=== PATIENT | female | born 1955 | race Caucasian/White ===

== ENCOUNTER → 2018-01-10 13:02 | Outpatient (CLI) | payer MEDICARE, SELFPAY ==
--- NOTE | 2018-01-10 13:08 | RAD_ITS ---
STUDY: X-RAY - THORACIC SPINE REASON FOR EXAM: Female, 62 years old. Neck pain. TECHNIQUE: 2 view(s) of the thoracic spine were obtained. COMPARISON: None. FINDINGS: There is mild generalized osteopenia. Normal kyphosis of the thoracic spine. There is no substantial scoliosis. Normal thoracic vertebrae and endplates. There is multilevel mild intervertebral disc space narrowing with small osteophytes. The soft tissue structures are unremarkable. RAD/Thoracic Spine 3 Views IMPRESSION: Osteopenia with generalized mild thoracic spondylosis. Electronically Signed: Bill Hamilton MD at 18:48 EST , Service support ,
== END ==
PROVIDERS: Family Provider Internal Medicine; PCP Internal Medicine; Visit Provider Anesthesiology Pain Medicine
DX: M54.6 Pain in thoracic spine (principal)
CPT/HCPCS: 72072

== ENCOUNTER → 2019-04-26 | Outpatient (CLI) | payer MEDICARE, SELFPAY ==
--- NOTE | 2019-04-26 14:24 | RAD_ITS ---
STUDY: X-RAY - LEFT ANKLE REASON FOR EXAM: Female, 64 years old. Pain TECHNIQUE: 3 view(s) of the ankle. COMPARISON: None. FINDINGS: Normal visualized distal tibia and fibula. Normal medial and lateral malleoli. Normal tibiotalar articulation and ankle mortise. There is a plantar spur. There is degenerative change in the tarsal joints. The visualized subtalar, talonavicular, calcaneocuboid and tarsal articulations are normal. The soft tissue structures are unremarkable. RAD/Ankle min 3 Views IMPRESSION: Plantar spur. No visualized fracture. Electronically Signed: Nati Cleary MD at 13:56 EDT Tel , Service support ,
== END | disposition home or self-care (01) ==
PROVIDERS: Family Provider Internal Medicine; PCP Internal Medicine; Referring Provider Nurse Practitioner; Visit Provider Nurse Practitioner
DX: M25.572 Pain in left ankle and joints of left foot (principal)
CPT/HCPCS: 73610

== ENCOUNTER → 2019-08-26 | Outpatient (CLI) | payer MEDICARE, SELFPAY ==
--- NOTE | 2019-08-26 13:51 | RAD_ITS ---
STUDY: X-RAY - LEFT KNEE REASON FOR EXAM: Female, 64 years old. Left-sided knee pain. TECHNIQUE: 4 view(s) of the knee. COMPARISON: Radiographs of the left knee dated June 22, 2016. FINDINGS: There is an osteophyte arising from the medial tibial plateau. There is elongation of the tibial spines consistent with enthesopathy. There is an osteophyte arising from lateral femoral condyle. The proximal tibia and fibula are osteopenic. Normal proximal tibiofibular articulation. There is no demonstrated fracture. There is severe degenerative arthrosis of the medial femorotibial compartment with severe joint space narrowing. There is moderate degenerative arthrosis of the lateral femorotibial compartment with moderate joint space narrowing. There is moderate degenerative arthrosis of the patellofemoral articulation. There is a soft tissue prominence in the suprapatellar region suggesting a small volume joint effusion. The soft tissue structures are unremarkable. RAD/Knee 4 or More Views IMPRESSION: Moderate to severe degenerative arthropathy of the knee, as described. Electronically Signed: Leidy Garcia MD at 9:07 EDT , Service support ,
== END | disposition home or self-care (01) ==
LOC: RAD.FUTURE 13:50
PROVIDERS: Family Provider Internal Medicine; PCP Internal Medicine; Referring Provider Internal Medicine; Visit Provider Internal Medicine
DX: M25.562 Pain in left knee (principal); G89.29 Other chronic pain
CPT/HCPCS: 73564

== ENCOUNTER → 2021-02-26 14:10 | Outpatient (CLI) | payer MEDICARE, SELFPAY ==
--- NOTE | 2021-02-26 14:13 | RAD_ITS ---
We are attempting to reach an attending provider to discuss findings. An addendum with communication details will be sent when the communication is complete. INDICATION: PAIN EXAMINATION/TECHNIQUE: X-RAY - RIGHT XR Knee Complete 4 Views or More COMPARISON: 08/19/2016. FINDINGS: Total knee arthroplasty with posterior dislocation of the femoral component. Soft tissue swelling of the knee. No definite fracture. RAD/Knee 4 or More Views IMPRESSION: Total knee arthroplasty with posterior dislocation of the femoral component. Electronically Signed: Maurizio Smith MD at 19:21 EDT Tel , Service support ,
--- NOTE | 2021-02-26 14:13 | RAD_ITS ---
STUDY: X-RAY - LEFT KNEE REASON FOR EXAM: Female, 66 years old. PAIN, stiffness TECHNIQUE: 4 view(s) of the knee. COMPARISON: None. FINDINGS: Normal visualized distal femur. Normal visualized proximal tibia and fibula. Normal proximal tibiofibular articulation. There is severe degenerative arthrosis of the medial femorotibial compartment with severe joint space narrowing. Normal lateral femorotibial compartment. There is moderate degenerative arthrosis of the patellofemoral articulation. The soft tissue structures are unremarkable. RAD/Knee 4 or More Views IMPRESSION: Severe medial compartment arthrosis with degenerative spurs Moderate posterior patellar joint arthrosis with patellar spurs No demonstrated fracture Electronically Signed: Huseyin Harris MD at 15:47 EDT , Service support ,
== END ==
PROVIDERS: PCP Internal Medicine; Referring Provider Internal Medicine; Visit Provider Internal Medicine
DX: M25.561 Pain in right knee (principal); M25.562 Pain in left knee
CPT/HCPCS: 73564

== ENCOUNTER → 2021-04-07 13:47 | Outpatient (CLI) | payer MEDICARE, SELFPAY ==
--- NOTE | 2021-04-07 13:54 | ECHOCS_ITS ---
Reason For Study: Dysphagia Procedure This was a 2D Doppler, Color Flow transthoracic echocardiogram. The study was technically difficult. Contrast injection was performed. Exam performed in department. Left Ventricle Normal LV size. Left ventricular systolic function is normal. The estimated ejection fraction is 65 %. No evidence for diastolic dysfunction. No regional wall motion abnormalities noted. Right Ventricle Normal RV size. Normal systolic function. Atria Normal left atrium. Normal right atrium. No doppler evidence for ASD. Mitral Valve There is no mitral annular calcification. Normal mitral valve. Trivial mitral valve insufficiency. Tricuspid Valve Normal tricuspid valve. Trivial tricuspid valve insufficiency. Right ventricular systolic pressure estimated to be 24 mmHg. Aortic Valve Trisinus/trileaflet aortic valve. Normal aortic valve. Pulmonic Valve The pulmonic valve is not well visualized. Trivial pulmonic valve insufficiency. Great Vessels Normal sized aortic root. Pericardium/Pleural No pericardial effusion. Medication 22 gauge I.V. with prn adaptor inserted into right arm. Diluted definity 3ml given slow IV push to enhance endocardial definition. MMode/2D Measurements & Calculations LVIDd: 4.0 cm IVSd: 1.2 cm Ao root diam: 3.1 cm LVIDs: 2.7 cm LVPWd: 1.0 cm LA dimension: 3.5 cm FS: 32.4 % LAV(MOD-bp): 62.4 ml LA A4 area: 19.6 cm2 RA A4 area: 17.3 cm2 LAV(MOD-bp) Indexed: 29.8 ml/m2 LAV(MOD-sp2): 58.1 ml LAV(MOD-sp4): 60.6 ml Time Measurements MV dec time: 0.26 sec Doppler Measurements & Calculations MV E max matias: 77.8 cm/sec Lat Peak E' Matias: 6.9 cm/sec Med Peak E' Matias: 8.3 cm/sec MV A max matias: 96.4 cm/sec E/E' lat: 11.3 E/E' med: 9.3 MV E/A: 0.81 MV V2 max: 112.5 cm/sec MV P1/2t max matias: 92.9 cm/sec Ao V2 max: 143.1 cm/sec MV max P.1 mmHg MV P1/2t: 80.6 msec Ao max P.2 mmHg MV V2 mean: 68.0 cm/sec MV dec slope: 337.3 cm/sec2 MV mean P.2 mmHg MV V2 VTI: 20.9 cm MVA(P1/2t): 2.7 cm2 LV V1 max: 107.6 cm/sec PA V2 max: 113.6 cm/sec TR max matias: 227.4 cm/sec LV V1 max P.6 mmHg TR max P.7 mmHg ECHO/Echo Complete W/ Contrast Interpretation Summary The study was technically difficult. Contrast injection was performed. Left ventricular systolic function is normal. The estimated ejection fraction is 65 %. Trivial mitral valve insufficiency. Trivial tricuspid valve insufficiency. Trivial pulmonic valve insufficiency. Right ventricular systolic pressure estimated to be 24 mmHg. No evidence for diastolic dysfunction. Ordering Physician: Gertrude Ham Referring Physician: Gertrude Ham Performed By: Tomasz Contreras RCS
== END ==
PROVIDERS: PCP Internal Medicine; Referring Provider Internal Medicine; Visit Provider Internal Medicine
DX: R06.02 Shortness of breath (principal); R06.01 Orthopnea
CPT/HCPCS: 93306; Q9957; A4216; C8929

== ENCOUNTER → 2021-06-16 10:37 | Outpatient (CLI) | payer MEDICARE, SELFPAY ==
--- NOTE | 2021-06-16 10:40 | BI_ITS ---
MAMMOGRAPHY - BILATERAL SCREENING REASON FOR EXAM: Female, 66 years old. Routine annual screening examination. PERTINENT HISTORY: Non-contributory. Remote left stereotactic breast biopsy. TECHNIQUE: Digital bilateral breast jay (3D mammographic acquisition) in the CC and MLO projections. 2-D mediolateral oblique (MLO) and craniocaudad (CC) views of both breasts were obtained. CAD: Full Field Digital Mammography with Computer Added Detection was performed. COMPARISON: Comparison is made with prior study dated 11/18/2016 and 08/03/2015. FINDINGS: Breast Composition: There are scattered areas of fibroglandular density. There are no dominant masses or suspicious calcifications. No other significant abnormalities are identified. There has been no significant change since the prior study. BI/SCRN MAMM (CAD)W/JAY BILAT IMPRESSION: Stable bilateral screening mammogram. Yearly follow-up mammogram recommended. (A) ASSESSMENT CATEGORY: BIRADS Category 1: Negative. A letter regarding these results will be sent to the patient by the facility within 30 days. Approximately 10% of breast cancers are not detected by mammography. A normal mammogram should not delay biopsy of a clinically suspicious abnormality. [id number] Electronically Signed: Dinh Us MD at 11:32 EDT , Service support ,
--- NOTE | 2021-06-16 11:06 | BD_ITS ---
STUDY: DUAL ENERGY X-RAY ABSORPTIOMETRY / DXA REASON FOR EXAM: Female, 66 years old. [id number]. The patient is postmenopausal. TECHNIQUE: Bone Mineral Density (BMD) measurements of lumbar spine and bilateral hips were obtained. COMPARISON: Comparison is made with prior study dated 11/01/2011. FINDINGS: Lumbar Spine (L1-L4): g/cm2 (0.934) / T-score (-0.9) / Z-score (0.8) Findings are suggestive of normal bone density with a low fracture risk. Left Femur Total: g/cm2 (0.917) / T-score (-0.2) / Z-score (1.0) Left Femoral Neck: g/cm2 (0.627) / T-score (-2.0) / Z-score (-0.5) Right Femur Total: g/cm2 (0.844) / T-score (-0.8) / Z-score (0.4) Right Femoral Neck: g/cm2 (0.707) / T-score (-1.3) / Z-score (0.2) The T-Scores on the most recent prior examination were: Lumbar Spine (L1-L4): There has been worsening of bone density since the previous examination. Left Femur Total: which represents an improvement of 9.3%. Right Femur Total: which represents an improvement of 7%. BD/Dexa Bone Density Study IMPRESSION: The patient is considered osteopenic as outlined below according to World Jostin Organization (WHO) criteria with a moderate fracture risk. There has been improvement of bone density since the previous examination. Reference Information: The T-score is the number of standard deviations above or below the standard which is normal for young adults at their peak bone mineral density. The World Health Organization (WHO) interprets the T-scores as follows: Above -1 Normal bone density Between -1 and -2.5 Osteopenia Equal to / or below -2.5 Osteoporosis As a practical clinical guideline, osteopenia may be graded as follows: Mild -1 through -1.5 Moderate -1.6 through -2.0 Severe -2.1 through -2.4 The Z-score is the number of standard deviations above or below age-matched controls. A Z-score of less than -1.5 would be considered abnormal. References: 1. NIH Osteoporosis and Related Bone Diseases www osteo.org 2. International Society for Clinical Densitometry www iscd.org 3. National Osteoporosis Foundation www nof.org Electronically Signed: Dinh Us MD at 21:54 EDT , Service support ,
== END ==
PROVIDERS: PCP Internal Medicine; Referring Provider Internal Medicine; Visit Provider Internal Medicine
DX: Z78.0 Asymptomatic menopausal state (principal); Z12.31 Encounter for screening mammogram for malignant neoplasm of breast
CPT/HCPCS: 77063; 77067; 77080

== ENCOUNTER → 2022-06-08 | Outpatient (CLI) | payer MEDICARE, SELFPAY ==
--- NOTE | 2022-06-08 12:55 | RAD_ITS ---
STUDY: X-RAY - LUMBAR SPINE REASON FOR EXAM: Female, 67 years old. R HIP PAIN TECHNIQUE: XR Spine Lumbar Min 4 Views COMPARISON: None FINDINGS: Normal lumbar lordosis. There is no substantial scoliosis. There is a normal alignment of the vertebrae. There is multilevel endplate spondylosis of the lumbar vertebrae. There is multi-level degenerative disc disease with multi-level disc space narrowing. There are atherosclerotic vascular calcifications. The soft tissue structures are unremarkable. RAD/L/S Spine Min 4 Views IMPRESSION: Degenerative changes of the spine, as detailed above. Electronically Signed: Albert Greer MD at 19:22 EDT ,
--- NOTE | 2022-06-08 13:05 | RAD_ITS ---
STUDY: X-RAY - PELVIS AND RIGHT HIP REASON FOR EXAM: Female, 67 years old. R HIP PAIN TECHNIQUE: XR Hip Unilateral with Pelvis when performed; 2-3 Views COMPARISON: None. FINDINGS: There is a non-specific bowel gas pattern. Normal visualized soft tissue structures. Normal bilateral iliac wings, sacroiliac joints and visualized sacrum. Normal bilateral superior and inferior pubic rami. Normal pubic symphysis. Normal bilateral ischial tuberosities. Normal visualized femoral head. Normal acetabulum. Normal hip joint. RAD/HIP, UNI W/ Pelvis 2-3 Views IMPRESSION: No acute findings. Electronically Signed: Albert Greer MD at 19:22 EDT ,
== END | disposition home or self-care (01) ==
LOC: RAD 12:53
PROVIDERS: PCP Internal Medicine; Referring Provider Nurse Practitioner Family; Visit Provider Nurse Practitioner Family
DX: M25.551 Pain in right hip (principal)
CPT/HCPCS: 72110; 73502

== ENCOUNTER → 2022-09-26 | Outpatient (CLI) | payer MEDICARE, SELFPAY ==
--- NOTE | 2022-09-26 15:19 | BI_ITS ---
MAMMOGRAPHY - BILATERAL SCREENING REASON FOR EXAM: Female, 67 years old. Routine annual screening examination. PERTINENT HISTORY: Non-contributory. Remote left stereotactic breast biopsy. TECHNIQUE: Digital bilateral breast jay (3D mammographic acquisition) in the CC and MLO projections. 2-D mediolateral oblique (MLO) and craniocaudad (CC) views of both breasts were obtained. CAD: Full Field Digital Mammography with Computer Added Detection was performed. COMPARISON: Comparison is made with prior study dated 06/16/2021 and 11/18/2016. FINDINGS: Breast Composition: The breasts are heterogeneously dense, which may obscure small masses. There are no dominant masses or suspicious calcifications. A tissue clip marker is seen in the upper lateral portion of left breast. No other significant abnormalities are identified. There has been no significant change since the prior study. BI/SCRN MAMM (CAD)W/JAY BILAT IMPRESSION: Stable bilateral screening mammogram. Yearly follow-up mammogram recommended. (A) ASSESSMENT CATEGORY: BIRADS Category 2: Benign. A letter regarding these results will be sent to the patient by the facility within 30 days. Approximately 10% of breast cancers are not detected by mammography. A normal mammogram should not delay biopsy of a clinically suspicious abnormality. [id number] Electronically Signed: Dinh Us MD at 8:21 EST ,
== END | disposition home or self-care (01) ==
PROVIDERS: PCP Internal Medicine; Visit Provider Internal Medicine
DX: Z12.31 Encounter for screening mammogram for malignant neoplasm of breast (principal)
CPT/HCPCS: 77063; 77067

== ENCOUNTER 2023-03-15 14:20 | Emergency (ER) | payer MEDICARE, SELFPAY ==
[2023-03-15 14:20] VITALS: BP 152/88; PULSE 82; RESP 18; TEMP 36.3; O2SAT 98
--- NOTE | 2023-03-15 14:36 | VDLE_ITS ---
Reason For Study: LEG PAIN RIGHT LEFT CFV is compressible, spontaneous, phasic, GSV is normal. competent and demonstrates normal CFV is compressible, spontaneous, phasic, augmentation. competent, and demonstrates normal Procedure augmentation. This is a venous duplex using B-mode, color FV is compressible, spontaneous, phasic, flow and spectral Doppler. competent and demonstrates normal Exam performed portable in ED. augmentation. The exam was diagnostic. POP V is compressible, spontaneous, phasic, The study was technically difficult due to competent and demonstrates normal body habitus. augmentation. A preliminary report was called and/or faxed T/P Trunk is compressible. to Dr. Ellsworth. PTV is compressible. LT PerV is compressible. VL/Venous Duplex US, Unilateral Interpretation Summary There is no evidence of left lower extremity deep vein thrombosis. Left great s aphenous vein appears patent and compressible segmentally. Normal flow patterns right common femoral vein Technically difficult secondary to body habitus Ordering Physician: Evaristo Ellsworth Referring Physician: Gertrude Ham M.D. Performed By: Nathaniel Che RVT
--- NOTE | 2023-03-15 14:49 | ED.VIS.LOWEX ---
HPI History of Present Illness HPI Narrative: Patient presents with left leg pain that has been getting worse over the last 4 days. Patient denies any trauma or injury. Patient states that her pain starts in her knee on the medial aspect and radiates to her lower leg. Patient denies any fevers or chills. Patient denies any redness or swelling. Patient describes the pain as aching. Patient states it is worse whenever she elevates it. Patient denies any paresthesias or weakness. Chief Complaint: Lower Extremity Injury Informant: patient Onset/Context/Timing Onset: Days (4) Context: Gradual Onset Timing: Continuous Quality of Pain: Aching Location: Left leg and knee Worsened by: Elevation Relieved by: Nothing Associated Symptoms Associated Symptoms: Negative for Parasthesia, Weakness or Loss of Funtion [facility] Medical History (Updated 03/15/23 @ 15:[address] Evaristo Ellsworth, ) Asthma Fibromyalgia Home Medications Venlafaxine Xr [Effexor Xr] 75 mg PO DAILY 08/19/16 [History Last Taken Unknown] bupropion HCl 100 mg tablet 100 mg PO DAILY 08/19/16 [History Last Taken Unknown] clonidine HCl 0.1 mg tablet 0.1 mg PO BID 08/19/16 [History Last Taken Unknown] ergocalciferol (vitamin D2) 1,250 mcg (50,000 unit) capsule (Vitamin D2) 50,000 unit PO Q7D 08/19/16 [History Last Taken Unknown] hydrocodone-acetaminophen 5-325mg 5mg-325mg 1 tab PO Q6H PRN PRN Pain ##20 08/19/16 [Rx Last Taken Unknown] lansoprazole 30 mg capsule,delayed release (Prevacid) 30 mg PO DAILY 08/19/16 [History Last Taken Unknown] levothyroxine 125 mcg tablet 125 mcg PO DAILY 08/19/16 [History Last Taken Unknown] olmesartan 40 mg tablet (Benicar) 40 mg PO DAILY 08/19/16 [History Last Taken Unknown] pramipexole 0.125 mg tablet (Mirapex) 0.125 mg PO TID 08/19/16 [History Last Taken Unknown] rivaroxaban 20 mg tablet (Xarelto) 20 mg PO DAILY 08/19/16 [History Last Taken Unknown] tolterodine 4 mg capsule,extended release 24 hr 4 mg PO DAILY 08/19/16 [History Last Taken Unknown] hydrocodone bitartrate 30 mg tablet,crush resist,extended rel. 24hr (Hysingla ER) 30 mg PO DAILY 12/07/16 [History Last Taken Unknown] metaxalone 800 mg tablet 800 mg PO TID PRN Pain 12/07/16 [History Last Taken Unknown] mometasone-formoterol HFA 100 mcg-5 mcg/actuation aerosol inhaler (Dulera) 13 g IH BID 12/07/16 [History Last Taken Unknown] Allergy/AdvReac Type Severity Reaction Status Date / Time meloxicam [From Mobic] Allergy Unknown Verified 03/15/23 14:23 acetaminophen AdvReac Nausea Verified 03/15/23 14:23 [From Tylenol-Codeine #3] ciprofloxacin [From Cipro] AdvReac Other Verified 03/15/23 14:23 codeine phosphate AdvReac Nausea Verified 03/15/23 14:23 [From Tylenol-Codeine #3] levofloxacin [From Levaquin] AdvReac Other Verified 03/15/23 14:23 Surgical History (Updated 03/15/23 @ 14:[address] Evaristo Ellsworth DO) Hx of appendectomy Hx of eye surgery Hx of hysterectomy Hx of knee surgery Hx of tonsillectomy Social History Smoking Status: Never smoker ROS ROS ED Constitutional Constitutional ED: Denies chills or fever(s) Eyes Eyes: Denies blurry vision or change in vision ENT ENT ED: Denies rhinorrhea or sore throat Cardiovascular Cardiovascular: Denies chest pain or palpitations Respiratory/Chest Respiratory/Chest: Denies cough or dyspnea Gastrointestinal Gastrointestinal: Denies nausea or vomiting Genitourinary Genitourinary ED: Denies dysuria or hematuria Musculoskeletal Musculoskeletal: Denies back pain or neck pain Integumentary Reports rash; Denies abscess Neurologic Neurologic: Denies headache(s) or weakness Allergic/Immunologic Allergic/Immunologic ED: Denies mouth swelling or urticaria EXAM Physical Exam Const Vital Signs: 03/15/23 14:20 Temperature 97.4 F L Temperature Source Temporal Pulse Rate 82 Respiratory Rate 18 Blood Pressure 152/88 H Blood Pressure Mean 109 Pulse Ox 98 Oxygen Delivery Method Room Air Positive well nourished, well developed and obese General Appearance ED: well developed and NAD Nutritional Appearance: obese Neck full ROM and supple Extremity Extremity Narrative: There is tenderness over the left lower leg and calf. There is minimal edema. There is no ecchymosis. Pedal pulses are equal bilaterally. Sensation was intact to light touch bilaterally in the lower extremities. Strength is 5/5 bilaterally in the lower extremities. Neuro oriented x3, CN's II-XII intact bilaterally, moves all extremities and no sensory deficits noted Sensorium / Orientation: alert Motor Exam: strength 5/5 throughout Psych mental status grossly normal MDM MDM MDM Narrative Medical decision making narrative: Differential diagnosis includes DVT, musculoskeletal strain, contusion, and neuropathy. Venous duplex of the left lower extremity will be obtained to assess for DVT. Radiography Diagnostic Testing: Venous duplex of the left lower extremity was obtained. There is no evidence of DVT. Treatment and Re-Evaluation Narrative: Patient was advised of her findings. Patient was advised that this could be neuropathy pain, RSD pain, or fibromyalgia pain. Patient was instructed to continue her pain medications as needed. Patient was instructed to follow-up with her primary care physician in 5 to 7 days. Patient understood and was agreeable with the plan. All questions were answered. Discharge Plan Triage Chief Complaint: Lower Extremity Injury ED Provider: Evaristo Ellsworth Dx/Rx/DC Orders Clinical Impression: Acute pain of left lower extremity, BMI greater than 30, Essential hypertension Instructions: ED Pain, Acute, Uncertain Cause Prescriptions: No Action clonidine HCl 0.1 MG tablet 0.1 mg PO BID tolterodine 4 MG capsule,extended release 24hr 4 mg PO DAILY bupropion HCl 100 MG tablet 100 mg PO DAILY levothyroxine 125 MCG tablet 125 mcg PO DAILY lansoprazole [Prevacid] 30 MG capsule 30 mg PO DAILY pramipexole [Mirapex] 0.125 MG tablet 0.125 mg PO TID ergocalciferol (vitamin D2) [Vitamin D2] 50,000 UNIT capsule 50,000 unit PO Q7D olmesartan [Benicar] 40 MG tablet 40 mg PO DAILY rivaroxaban [Xarelto] 20 MG tablet 20 mg PO DAILY Venlafaxine Xr [Effexor Xr] 75 MG capsule 75 mg PO DAILY hydrocodone-acetaminophen 1 TABLET tablet 1 tab PO Q6H PRN PRN (Reason: Pain) Qty: 20 0RF metaxalone 800 MG tablet 800 mg PO TID PRN (Reason: Pain) mometasone-formoterol [Dulera] 8.8 GM HFA aerosol inhaler 13 g IH BID hydrocodone bitartrate [Hysingla ER] 30 MG tablet,oral only,ext.rel.24 hr 30 mg PO DAILY Primary Care Provider: Gertrude Ham Referrals: Gertrude Ham DO [Primary Care Provider] - 5-7 Days Disposition Disposition: Home, Self Care
== END 2023-03-15 15:46 | disposition home or self-care (01) ==
PROVIDERS: Emergency Provider Emergency Medicine; PCP Internal Medicine; Visit Provider Emergency Medicine
DX: M79.605 Pain in left leg (principal); I10 Essential (primary) hypertension; J45.909 Unspecified asthma, uncomplicated; E66.9 Obesity, unspecified
CPT/HCPCS: 93971; 99282

== ENCOUNTER → 2023-11-03 | Outpatient (CLI) | payer MEDICARE, SELFPAY ==
--- NOTE | 2023-11-03 16:55 | RAD_ITS ---
INDICATION: Cough and crackling EXAMINATION/TECHNIQUE: X-RAY - XR Chest 2 Views COMPARISON: FINDINGS: LINES/DEVICES: None. LUNGS: No consolidation, edema or effusion. No pneumothorax. MEDIASTINUM AND CARDIOVASCULAR STRUCTURES: Cardiac silhouette not enlarged. Central airways and mediastinal contour are unremarkable. BONES AND SOFT TISSUES: Unremarkable. RAD/Chest PA and Lateral IMPRESSION: No radiographic evidence of acute cardiopulmonary disease. Electronically Signed: Ml Webb MD at 17:13 EST Reading Location ID and State: [id number] / Tel , Service support ,
== END | disposition home or self-care (01) ==
LOC: MTRAD 16:51
PROVIDERS: PCP Internal Medicine; Referring Provider Physician Assistant Surgical; Visit Provider Physician Assistant Surgical
DX: J20.9 Acute bronchitis, unspecified (principal)
CPT/HCPCS: 71046

== ENCOUNTER 2024-03-08 15:26 | Emergency (ER) | payer MEDICARE, SELFPAY ==
[2024-03-08 15:28] VITALS: BP 138/70; PULSE 83; RESP 18; TEMP 36.3; O2SAT 100
[2024-03-08 17:13] LABS: Mucous, Urine 0 SEEN /hpf (<or=2+)
[2024-03-08 17:24] LABS: Color, Urine Yellow (Yellow); Glucose, Dipstick Normal (Normal); Ketone-Dipstick Negative (Negative); Leukocyte Esterase-Dipstick 25 /ul (Negative); Nitrite-Dipstick Negative (Negative); Occult Blood-Urine 10 /ul (Negative); Protein-Dipstick Negative (Negative); Urine Bilirubin Dipstick Negative (Negative); Urine Clarity Clear (Clear); Urine Urobilinogen Normal (Normal)
[2024-03-08 17:27] VITALS: BP 145/78; PULSE 69; RESP 18; O2SAT 97
--- NOTE | 2024-03-08 17:29 | EX.ED.DYSGE1 ---
HPI History of Present Illness Chief Complaint: Flank Pain Informant: patient and friend Narrative Narrative: 69-year-old female presenting to the emergency room with abdominal pain. Patient states that last Monday she began to have a right upper quadrant pain. Then it moved to the right lower quadrant and into the right flank. She has had urinary frequency and states that sometimes she does not make it to the bathroom on time she is also developed diarrhea which she states is 2-3 times per day. Her friend states that she seems short of breath when she talks. She has a history of RSD and is on palliative care for pain management of it. She has a history also including GERD hypothyroidism and DVT. She currently takes Xarelto. [facility] Medical History Asthma Fibromyalgia Home Medications Venlafaxine Xr [Effexor Xr] 75 mg PO DAILY 08/19/16 [History Last Taken Unknown] clonidine HCl 0.1 mg tablet 0.1 mg PO BID 08/19/16 [History Last Taken 03/08/24 13:00] ergocalciferol (vitamin D2) 1,250 mcg (50,000 unit) capsule (Vitamin D2) 50,000 unit PO Q7D 08/19/16 [History Last Taken Unknown] lansoprazole 30 mg capsule,delayed release (Prevacid) 30 mg PO DAILY 08/19/16 [History Last Taken Unknown] levothyroxine 125 mcg tablet 125 mcg PO DAILY 08/19/16 [History Last Taken Unknown] pramipexole 0.125 mg tablet (Mirapex) 0.125 mg PO QHS 08/19/16 [History Last Taken Unknown] rivaroxaban 20 mg tablet (Xarelto) 20 mg PO DAILY 08/19/16 [History Last Taken Unknown] hydrocodone bitartrate 30 mg tablet,crush resist,extended rel. 24hr (Hysingla ER) 30 mg PO DAILY 12/07/16 [History Last Taken 03/08/24 01:00] mometasone-formoterol HFA 100 mcg-5 mcg/actuation aerosol inhaler (Dulera) 13 g IH BID 12/07/16 [History Last Taken Unknown] amoxicillin 875 mg-potassium clavulanate 125 mg tablet 1 tab PO BID 03/08/24 [History Last Taken Unknown] hydrocodone-acetaminophen 5-325mg 5mg-325mg 1 tab PO QHS PRN PRN Pain 03/08/24 [History Last Taken Unknown] losartan 100 mg tablet 100 mg PO DAILY 03/08/24 [History Last Taken Unknown] methadone 5 mg tablet 5 mg PO Q12H pain 03/08/24 [History Last Taken 03/08/24 13:00] promethazine 25 mg tablet 25 mg PO DAILY nausea 03/08/24 [History Last Taken Unknown] Allergy/AdvReac Type Severity Reaction Status Date / Time meloxicam [From Mobic] Allergy Unknown Verified 03/08/24 15:28 acetaminophen AdvReac Nausea Verified 03/08/24 15:28 [From Tylenol-Codeine #3] ciprofloxacin [From Cipro] AdvReac Other Verified 03/08/24 15:28 codeine phosphate AdvReac Nausea Verified 03/08/24 15:28 [From Tylenol-Codeine #3] levofloxacin [From Levaquin] AdvReac Other Verified 03/08/24 15:28 Surgical History Hx of appendectomy Hx of eye surgery Hx of hysterectomy Hx of knee surgery Hx of tonsillectomy Social History Smoking Status: Never smoker ROS ROS ED Constitutional Constitutional ED: Denies chills, fever(s) or weight loss Eyes Eyes: Denies change in vision or diplopia ENT ENT ED: Denies ear pain, rhinorrhea or sore throat Cardiovascular Cardiovascular: Denies chest pain, orthopnea, palpitations or racing heartbeat Respiratory/Chest Respiratory/Chest: Reports dyspnea; Denies cough or orthopnea Gastrointestinal Gastrointestinal: Reports abdominal pain, diarrhea and nausea; Denies vomiting Genitourinary Genitourinary ED: Reports urinary frequency; Denies dysuria or hematuria Musculoskeletal Musculoskeletal: Reports other Details: Chronic musculoskeletal pain ; Denies arthralgias or myalgias Integumentary Denies abscess or rash Neurologic Neurologic: Denies headache(s) or weakness Psychiatric Psychiatric: Denies anxiety, depression, suicidal ideation or suicidal thoughts Endocrine Endocrinology: Denies polydipsia, polyphagia or polyuria Allergic/Immunologic Allergic/Immunologic ED: Denies mouth swelling, tongue swelling or urticaria EXAM Physical Exam Const Vital Signs: 03/08/24 15:28 03/08/24 17:27 03/08/24 19:00 Temperature 97.4 F L Temperature Source Temporal Pulse Rate 83 69 84 Respiratory Rate 18 18 16 Blood Pressure 138/70 H 145/78 H 152/74 H Blood Pressure Mean 92 100 100 Pulse Ox 100 97 100 Oxygen Delivery Method Room Air Room Air Room Air Positive well nourished, well developed and obese General Appearance ED: well developed Nutritional Appearance: obese HEENT Reports normocephalic, head/scalp atraumatic and moist mucous membranes Eyes PERRL and EOMs intact bilaterally Neck no lymphadenopathy, supple and no JVD Resp normal respiratory effort and clear to auscultation bilaterally Cardio regular rate, regular rhythm and no murmurs GI Inspection: Negative for abdominal distention Auscultation: normoactive bowel sounds Palpation: soft and tender RLQ Back/Spine normal ROM General Back: CVA tenderness right Extremity Extremity Narrative: Patient with tenderness to palpation around the right thigh. No significant distal swelling bilaterally General Extremety ED: Yes tenderness; Negative for edema General Extremity: Negative for edema Neuro oriented x3 and CN's II-XII intact bilaterally Sensorium / Orientation: alert Motor Exam: strength 5/5 throughout Psych mental status grossly normal Mood & Affect: Negative for depressed or tearful Skin no rashes or lesions noted and no wounds MDM MDM MDM Narrative Medical decision making narrative: White count 11 hemoglobin 9.9. Patient does note a history of anemia. Platelet count 486. Creatinine 0.82 CO2 25 liver with no overt infection 1+ bacteria 0-5 whites 3-5 reds negative nitrates. Liver enzymes are normal. CT of the abdomen pelvis shows nothing acute to explain her symptoms. No obvious hydronephrosis kidney stone or inflammatory conditions. Patient has pain medication at home. Not seeing anything acute that we can intervene upon. If symptoms persist follow-up with primary care with a change would recommend ED follow-up. History & Record Review Discussion w/independent historian: Patient and Friend Lab Data Attestation: I reviewed the patient's lab results. Labs: Laboratory Results - last 24 hr 03/08/24 17:06 WBC 11.0 RBC 4.80 Hgb 9.9 L Hct 35.9 L MCV 74.8 L MCH 20.6 L MCHC 27.6 L RDW Std Deviation 49.6 H RDW Coeff of Vick 18.6 H Plt Count 486 H MPV 9.4 Immature Gran % (Auto) 0.400 Neut % (Auto) 75.2 H Lymph % (Auto) 17.4 L [place] % (Auto) 5.0 Eos % (Auto) 1.5 Baso % (Auto) 0.5 Absolute Neuts (auto) 8.3 H Absolute Lymphs (auto) 1.91 Nucleated RBC % 0 Sodium 139 Potassium 4.0 Chloride 105 Carbon Dioxide 25.0 Anion Gap 9 BUN 14 Creatinine 0.82 Est GFR (MDRD) Af Amer 89 Est GFR (MDRD) Non-Af 74 BUN/Creatinine Ratio 17.1 Glucose 99 Calcium 8.9 Total Bilirubin 0.20 Direct Bilirubin 0.10 AST 23 ALT 16 Alkaline Phosphatase 81 Total Protein 7.8 Albumin 3.4 Globulin 4.4 H Urine Color Yellow Urine Clarity Clear Urine pH 6.0 Ur Specific [place] 1.020 Urine Protein Negative Urine Glucose (UA) Normal Urine Ketones Negative Urine Occult Blood 10 H Urine Nitrite Negative Urine Bilirubin Negative Urine Urobilinogen Normal Ur Leukocyte Esterase 25 H Urine RBC 0-5 SEEN Urine WBC 0-5 SEEN Ur Squamous Epith Cells 0-5 SEEN Urine Bacteria 1+ Urine Mucus 0 SEEN Radiography Diagnostic Testing: Clinical Impression(s) from Imaging Studies Abdomen/Pelvis CT 03/08/24 18:31 IMPRESSION: No acute findings in the abdomen or pelvis. Electronically Signed: Miguel Angel Yuen MD at 19:38 EDT Reading Location ID and State: [facility] / [place] Tel , Service support , Discharge Plan Triage Chief Complaint: Flank Pain ED Provider: Bartolo Montanez Dx/Rx/DC Orders Clinical Impression: Abdominal pain Instructions: Abdominal Pain Prescriptions: No Action clonidine HCl 0.1 MG tablet 0.1 mg PO BID levothyroxine 125 MCG tablet 125 mcg PO DAILY lansoprazole [Prevacid] 30 MG capsule 30 mg PO DAILY pramipexole [Mirapex] 0.125 MG tablet 0.125 mg PO QHS Patient Comments: 1 at bedtime, can go up to four ergocalciferol (vitamin D2) [Vitamin D2] 50,000 UNIT capsule 50,000 unit PO Q7D Xarelto 20 MG tablet 20 mg PO DAILY Venlafaxine Xr [Effexor Xr] 75 MG capsule 75 mg PO DAILY Dulera 8.8 GM HFA aerosol inhaler 13 g IH BID hydrocodone bitartrate [Hysingla ER] 30 MG tablet,oral only,ext.rel.24 hr 30 mg PO DAILY methadone 5 mg tablet 5 mg PO Q12H losartan 100 mg tablet 100 mg PO DAILY amoxicillin-pot clavulanate 875-125 mg tablet 1 tab PO BID Patient Comments: only prn before dental procedures promethazine 25 mg tablet 25 mg PO DAILY hydrocodone-acetaminophen 1 TABLET tablet 1 tab PO QHS PRN PRN (Reason: Pain) Primary Care Provider: Gertrude Ham Referrals: Gertrude Ham DO [Primary Care Provider] - 3-5 Days Activity Restrictions/Additional Instructions: If new symptoms or worsening please return to emergency. I would recommend following up with primary care if symptoms are persisting. Obviously it is the weekend so if there are any acute changes he would need to return here Disposition Disposition: Home, Self Care
[2024-03-08 17:37] LABS: Bacteria 1+ /hpf (None Seen); Squamous Epithelial Cells - UA 0-5 SEEN /hpf (5-10); White Blood Cells 0-5 SEEN /hpf (0-5)
[2024-03-08 17:38] LABS: Red Blood Cells-Urine 0-5 SEEN /hpf (0-5)
[2024-03-08 17:47] LABS: Absolute Lymphocyte Count 1.91 X10^3/uL (0.83-4.51); Absolute Neutrophil Count 8.3 X10^3/uL (2.0-7.7); Basophil# 0.06 X10^3/uL; Basophil% 0.5 % (0-1); Eosinophil# 0.16 X10^3/uL; Eosinophils% 1.5 % (0-5); Hematocrit 35.9 % (37-47); Hemoglobin 9.9 g/dL (12.0-15.0); Lymphocyte # 1.91 X10^3/ul (0.83-4.51); Lymphocyte % 17.4 % (19-41); Mean Corp Hgb Conc 27.6 g/dL (32-36); Mean Corpuscular Hgb 20.6 pg (27.0-32.0); Mean Corpuscular Volume 74.8 fL (81-99); Mean Platelet Vol. 9.4 fl (6.2-12.0); Monocyte# 0.55 X10^3/uL; NRBC Flagged by Analyzer 0 % (0-5); Neutrophil # 8.28 X10^3/uL (2.7-7.7); Neutrophil % 75.2 % (47-70); Platelet Count 486 K/mm3 (150-450); RBC Distribution Width CV 18.6 % (11.6-14.6); RBC Distribution Width SD 49.6 fl (35.1-43.9)
[2024-03-08 17:58] LABS: AST(SGOT) 23 U/L (15-37); Alanine Aminotransfer ALT/SGPT 16 U/L (13-56); Albumin, Serum 3.4 g/dL (3.2-5.0); Alkaline Phosphatase 81 U/L (45-117); Anion Gap 9 (5-15); BUN 14 mg/dL (7-18); BUN/Creat Ratio 17.1 RATIO (10-20); Calcium,Total 8.9 mg/dL (8.5-10.1); Chloride 105 mmol/L (98-107); Creatinine, Serum 0.82 mg/dL (0.55-1.02); EST Glomerular Filtration Rate 74 mL/min (>60); Est Glom Filt Rate - Afr Amer 89 mL/min (>60); Globulin 4.4 g/dL (2.2-4.2); Glucose 99 mg/dL (74-106); Protein, Total 7.8 g/dL (6.4-8.2); Sodium Level 139 mmol/L (136-145)
--- NOTE | 2024-03-08 18:31 | CT_ITS ---
INDICATION: abdominal pain EXAMINATION: CT ABDOMEN AND PELVIS WITH CONTRAST - CT Abdomen And Pelvis W/ Contrast Injection TECHNIQUE: Helically acquired images were obtained of the abdomen and pelvis following IV contrast. A radiation dose optimization technique was used for this scan. IV Contrast dosage and agent: 100 cc [id number] Oral contrast: None. COMPARISON: None. FINDINGS: LOWER CHEST: Lung bases are clear. No cardiomegaly or pericardial effusion. LIVER: Homogeneous. No focal mass. GALLBLADDER AND BILIARY TREE: No calcified gallstones. No gallbladder distension or wall edema. No intra- or extrahepatic biliary ductal dilation. PANCREAS: No focal cystic or solid mass. SPLEEN: Normal size without focal cystic or solid mass. ADRENAL GLANDS: No nodules. KIDNEYS AND URETERS: Normal renal size and position. No hydronephrosis. PERITONEUM: No ascites or free air. BOWEL: No evidence of acute appendicitis. No stomach or bowel distension. No focal inflammatory change. LYMPH NODES: No enlarged mesenteric or retroperitoneal lymph nodes. VESSELS: Aorta is non-dilated. URINARY BLADDER: Unremarkable. REPRODUCTIVE ORGANS: Uterus absent. ABDOMINAL WALL: Small fat-containing umbilical hernia. BONES: No acute or aggressive abnormality. CT/Abdomen/Pelvis W IV Cont ONLY IMPRESSION: No acute findings in the abdomen or pelvis. Electronically Signed: Miguel Angel Yuen MD at 19:38 EDT ,
[2024-03-08 19:00] VITALS: BP 152/74; PULSE 84; RESP 16; O2SAT 100
[2024-03-08 19:20] VITALS: BMI 47.7
[2024-03-08 20:00] VITALS: BP 154/75; PULSE 89; RESP 16; TEMP 36.9; O2SAT 100
== END 2024-03-08 20:12 | disposition home or self-care (01) ==
PROVIDERS: Emergency Provider Emergency Medicine; PCP Internal Medicine; Visit Provider Emergency Medicine
DX: R10.9 Unspecified abdominal pain (principal); R35.0 Frequency of micturition; R19.7 Diarrhea, unspecified; K21.9 Gastro-esophageal reflux disease without esophagitis; Z86.718 Personal history of other venous thrombosis and embolism; J45.909 Unspecified asthma, uncomplicated; Z79.01 Long term (current) use of anticoagulants; Z79.899 Other long term (current) drug therapy; R06.00 Dyspnea, unspecified; E66.9 Obesity, unspecified
CPT/HCPCS: 74177; 80048; 80076; 81001; 85025; 99284; Q9967; A4216

== ENCOUNTER → 2024-09-17 | Outpatient (CLI) | payer MEDICARE, SELFPAY ==
[2024-09-17 12:54] LABS: Anion Gap 3 (5-15); BUN 13 mg/dL (7-18); Calcium,Total 8.8 mg/dL (8.5-10.1); Chloride 103 mmol/L (98-107); Creatinine, Serum 0.86 mg/dL (0.55-1.02); EST Glomerular Filtration Rate 69 mL/min (>60); Est Glom Filt Rate - Afr Amer 84 mL/min (>60); Glucose 109 mg/dL (74-106); Magnesium 2.4 mg/dL (1.6-2.6); Potassium 4.7 mmol/L (3.5-5.1); Sodium Level 137 mmol/L (136-145)
== END | disposition home or self-care (01) ==
PROVIDERS: PCP Internal Medicine; Referring Provider Internal Medicine; Visit Provider Internal Medicine
DX: Z51.81 Encounter for therapeutic drug level monitoring (principal)
CPT/HCPCS: 36415; 80048; 83735

== ENCOUNTER 2024-11-05 15:37 | Emergency (ER) | payer MEDICARE, SELFPAY ==
[2024-11-05 15:38] VITALS: BP 162/73; PULSE 85; RESP 20; TEMP 36.3; O2SAT 100
--- NOTE | 2024-11-05 16:12 | RAD_ITS ---
STUDY: X-RAY - LEFT TIBIA AND FIBULA REASON FOR EXAM: Female, 69 years old. Injury/Pain TECHNIQUE: 3 view(s) of the tibia and fibula were obtained. COMPARISON: None. FINDINGS: Normal visualized tibia. Normal visualized fibula. The soft tissue structures are unremarkable. RAD/Tibia & Fibula 2 Views IMPRESSION: Normal x-ray examination of the tibia and fibula. Electronically Signed: Johny Quispe MD at 16:24 EST ,
--- NOTE | 2024-11-05 16:18 | EX.ED.DYSGE1 ---
HPI History of Present Illness Chief Complaint: Lower Extremity Injury Detail of Chief Complaint: Atraumatic anterior left leg pain Informant: patient Onset/Context/Timing Onset: Days (Onset this past , Monday) Context: Sudden Onset Timing: Continuous Quality: Pain Location: Anterior left leg Current Severity: Mild Maximum Severity: Severe Worsened by: Certain movements and palpation Relieved by: Nothing Associated Symptoms Associated Symptoms: None Narrative Narrative: Patient is a 69-year-old female. She presents with atraumatic anterior left leg pain. 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 Patient denies history of gout or pseudogout. Patient denies chest pain or shortness of breath. Patient denies fever, chills night sweats. She has not noted discoloration of the leg. Patient was informed the deep veins are not located on the anterior of the leg. Prior similar symptoms: No Recent Illness/Hospitalization: No PFSH PFS Medical History Asthma Fibromyalgia Home Medications ?Medication ?Instructions ?Recorded ?Last Taken ?Type Venlafaxine Xr [Effexor Xr] 75 mg PO DAILY 08/19/16 Unknown History clonidine HCl 0.1 mg tablet 0.1 mg PO BID 08/19/16 03/08/24 13:00 History ergocalciferol (vitamin D2) 1,250 50,000 unit PO Q7D 08/19/16 Unknown History mcg (50,000 unit) capsule (Vitamin D2) lansoprazole 30 mg capsule,delayed 30 mg PO DAILY 08/19/16 Unknown History release (Prevacid) levothyroxine 125 mcg tablet 125 mcg PO DAILY 08/19/16 Unknown History pramipexole 0.125 mg tablet 0.125 mg PO QHS 08/19/16 Unknown History (Mirapex) rivaroxaban 20 mg tablet (Xarelto) 20 mg PO DAILY 08/19/16 Unknown History hydrocodone bitartrate 30 mg 30 mg PO DAILY 12/07/16 03/08/24 01:00 History tablet,crush resist,extended rel. 24hr (Hysingla ER) mometasone-formoterol HFA 100 13 g IH BID 12/07/16 Unknown History mcg-5 mcg/actuation aerosol inhaler (Dulera) amoxicillin 875 mg-potassium 1 tab PO BID 03/08/24 Unknown History clavulanate 125 mg tablet hydrocodone-acetaminophen 5-325mg 1 tab PO QHS PRN PRN Pain 03/08/24 Unknown History 5mg-325mg losartan 100 mg tablet 100 mg PO DAILY 03/08/24 Unknown History methadone 5 mg tablet 5 mg PO Q12H pain 03/08/24 03/08/24 13:00 History promethazine 25 mg tablet 25 mg PO DAILY nausea 03/08/24 Unknown History Allergy/AdvReac Type Severity Reaction Status Date / Time meloxicam (From Mobic) Allergy Unknown Verified 11/05/24 15:38 acetaminophen (From AdvReac Nausea Verified 11/05/24 15:38 Tylenol-Codeine #3) ciprofloxacin (From Cipro) AdvReac Other Verified 11/05/24 15:38 codeine phosphate (From AdvReac Nausea Verified 11/05/24 15:38 Tylenol-Codeine #3) levofloxacin (From Levaquin) AdvReac Other Verified 11/05/24 15:38 Surgical History Hx of appendectomy Hx of eye surgery Hx of hysterectomy Hx of knee surgery Hx of tonsillectomy Social History Smoking Status: Never smoker ROS ROS ED Constitutional Constitutional ED: Denies chills, fever(s), subjective, sweats or weight loss Eyes Eyes: Denies blurry vision or change in vision ENT ENT ED: Denies ear pain or rhinorrhea Cardiovascular Cardiovascular: Denies chest pain or palpitations Respiratory/Chest Respiratory/Chest: Denies cough, dyspnea or dyspnea on exertion Musculoskeletal Musculoskeletal: Denies arthralgias or myalgias Integumentary Denies rash Neurologic Neurologic: Denies paresthesias or weakness Hematologic/Lymphatic Hematologic/Lymphatic: Denies systems reviewed and no addt'l complaints, except as documented EXAM Physical Exam Const Vital Signs: 11/05/24 15:38 Temperature 97.4 F L Temperature Source Temporal Pulse Rate 85 Respiratory Rate 20 H Blood Pressure 162/73 H Blood Pressure Mean 102 Pulse Ox 100 Oxygen Delivery Method Room Air Positive well nourished and well developed General Appearance ED: well developed, NAD and pallor; Negative for cyanotic or diaphoretic HEENT Reports moist mucous membranes HEENT Narrative: Head atraumatic normocephalic. Ears normal. Nares patent. Eyes PERRL and EOMs intact bilaterally General Eye ED: Negative for scleral icterus Neck no lymphadenopathy, supple and no JVD Chest Wall inspection of chest normal and palpation of chest normal Resp normal respiratory effort Cardio regular rate and regular rhythm Extremity normal to inspection Extremity Narrative: There is no swelling, discoloration, leg vein distention, palpable cords or tenderness on the distribution deep venous system. There is pain palpation over the anterior left leg and particularly over the mid third of the left tibia. There is also pain between the tibia and fibula anterior left leg. There is no pain the patient calf. DP and PT pulse are palpable. The PT pulses slightly diminished due to edema. There is no vascular compromise appreciated. Having patient dorsi and plantarflex causes her discomfort anteriorly. Neuro oriented x3 and CN's II-XII intact bilaterally Sensorium / Orientation: alert Psych mental status grossly normal Skin no rashes or lesions noted, no wounds and skin turgor normal General Skin Exam: elasticity normal and pallor; Negative for jaundice MDM MDM MDM Narrative Medical decision making narrative: This is all likelihood represents a musculoskeletal cause. History and physical is not consistent with DVT. History and physical not consistent with gout or pseudogout. Will obtain x-ray to ascertain if there is any abnormality of the tibia or fibula. Blood work was obtained as well to assess for any metabolic cause. ESR was obtained since she has had symptoms for several days to determine if there is any evidence of inflammation. Lab Data Attestation: I reviewed the patient's lab results. Lab results narrative: CBC reveals microcytic anemia. Basic metabolic panel is normal. ESR is elevated at 62 and is elevated even after correction for age. It is not markedly elevated. I do not believe this is an inflammatory process and there is no concern for infection or malignancy at this point. Labs: Laboratory Results - last 24 hr 11/05/24 16:05 WBC 7.7 RBC 4.20 Hgb 8.3 L Hct 30.6 L MCV 72.9 L MCH 19.8 L MCHC 27.1 L RDW Std Deviation 50.4 H RDW Coeff of Vick 19.2 H Plt Count 447 MPV 8.9 Immature Gran % (Auto) 0.400 Neut % (Auto) 70.7 H Lymph % (Auto) 19.6 [place] % (Auto) 6.0 Eos % (Auto) 2.7 Baso % (Auto) 0.6 Absolute Neuts (auto) 5.4 Absolute Lymphs (auto) 1.51 Nucleated RBC % 0 ESR 62 H Sodium 138 Potassium 4.0 Chloride 104 Carbon Dioxide 30.0 Anion Gap 4 L BUN 10 Creatinine 0.72 Est GFR (MDRD) Af Amer 103 Est GFR (MDRD) Non-Af 85 BUN/Creatinine Ratio 13.8 Glucose 101 Calcium 8.6 Radiography Chest X-Ray - ED: 2 View and Read by ED Physician (No acute bony abnormality. There is no soft tissue swelling. There is no foreign body. This is independent reviewed interpreted by me.) Diagnostic Testing: Clinical Impression(s) from Imaging Studies Tibia/Fibula X-Ray 11/05/24 16:12 IMPRESSION: Normal x-ray examination of the tibia and fibula. Electronically Signed: Johny Quispe MD at 16:24 EST Reading Location ID and State: [facility] / [place] Tel , Service support , Treatment and Re-Evaluation :: Patient was informed of results. She was informed to follow-up with Dr. Lyons if this did not improve. Discharge Plan Triage Chief Complaint: Lower Extremity Injury ED Provider: Stanislav Nazario Dx/Rx/DC Orders Clinical Impression: Musculoskeletal leg pain, Reflex sympathetic dystrophy of lower extremity, BMI greater than 30, History of DVT of lower extremity, Essential hypertension, Osteoarthrosis, localized, primary, involving lower leg Instructions: ED Muscle Strain, Extremity Prescriptions: No Action clonidine HCl 0.1 MG tablet 0.1 mg PO BID levothyroxine 125 MCG tablet 125 mcg PO DAILY lansoprazole [Prevacid] 30 MG capsule 30 mg PO DAILY pramipexole [Mirapex] 0.125 MG tablet 0.125 mg PO QHS Patient Comments: 1 at bedtime, can go up to four ergocalciferol (vitamin D2) [Vitamin D2] 50,000 UNIT capsule 50,000 unit PO Q7D Xarelto 20 MG tablet 20 mg PO DAILY Venlafaxine Xr [Effexor Xr] 75 MG capsule 75 mg PO DAILY Dulera 8.8 GM HFA aerosol inhaler 13 g IH BID hydrocodone bitartrate [Hysingla ER] 30 MG tablet,oral only,ext.rel.24 hr 30 mg PO DAILY methadone 5 mg tablet 5 mg PO Q12H losartan 100 mg tablet 100 mg PO DAILY amoxicillin-pot clavulanate 875-125 mg tablet 1 tab PO BID Patient Comments: only prn before dental procedures promethazine 25 mg tablet 25 mg PO DAILY hydrocodone-acetaminophen 1 TABLET tablet 1 tab PO QHS PRN PRN (Reason: Pain) Primary Care Provider: Gertrude Ham Referrals: Gertrude Ham DO [Primary Care Provider] - 1 Week if not improving Print Language: [place] Disposition Disposition: Home, Self Care
[2024-11-05 16:50] LABS: Absolute Lymphocyte Count 1.51 X10^3/uL (0.83-4.51); Absolute Neutrophil Count 5.4 X10^3/uL (2.0-7.7); Basophil# 0.05 X10^3/uL; Basophil% 0.6 % (0-1); Eosinophil# 0.21 X10^3/uL; Eosinophils% 2.7 % (0-5); Hematocrit 30.6 % (37-47); Hemoglobin 8.3 g/dL (12.0-15.0); Lymphocyte # 1.51 X10^3/ul (0.83-4.51); Lymphocyte % 19.6 % (19-41); Mean Corp Hgb Conc 27.1 g/dL (32-36); Mean Corpuscular Hgb 19.8 pg (27.0-32.0); Mean Corpuscular Volume 72.9 fL (81-99); Mean Platelet Vol. 8.9 fl (6.2-12.0); Monocyte# 0.46 X10^3/uL; NRBC Flagged by Analyzer 0 % (0-5); Neutrophil # 5.44 X10^3/uL (2.7-7.7); Neutrophil % 70.7 % (47-70); Platelet Count 447 K/mm3 (150-450); RBC Distribution Width CV 19.2 % (11.6-14.6); RBC Distribution Width SD 50.4 fl (35.1-43.9); White Blood Count 7.7 K/mm3 (4.4-11.0)
[2024-11-05 16:58] LABS: Anion Gap 4 (5-15); BUN 10 mg/dL (7-18); BUN/Creat Ratio 13.8 RATIO (10-20); Calcium,Total 8.6 mg/dL (8.5-10.1); Chloride 104 mmol/L (98-107); Creatinine, Serum 0.72 mg/dL (0.55-1.02); EST Glomerular Filtration Rate 85 mL/min (>60); Est Glom Filt Rate - Afr Amer 103 mL/min (>60); Glucose 101 mg/dL (74-106); Sodium Level 138 mmol/L (136-145)
[2024-11-05 17:09] LABS: Erythrocyte Sedimentation Rate 62 mm/hr (0-30)
[2024-11-05 17:43] VITALS: BP 148/78; PULSE 85; RESP 20; TEMP 36.3; O2SAT 100
== END 2024-11-05 17:43 | disposition home or self-care (01) ==
PROVIDERS: Emergency Provider Emergency Medicine; PCP Internal Medicine; Visit Provider Emergency Medicine
DX: M79.605 Pain in left leg (principal); G90.522 Complex regional pain syndrome I of left lower limb; I10 Essential (primary) hypertension; M19.90 Unspecified osteoarthritis, unspecified site; Z86.718 Personal history of other venous thrombosis and embolism; J45.909 Unspecified asthma, uncomplicated
CPT/HCPCS: 73590; 80048; 85025; 85652; 99283; A4216

== ENCOUNTER → 2025-07-02 | Outpatient (CLI) | payer MEDICARE, SELFPAY ==
[2025-07-02 18:06] LABS: Creatinine, Urine (random) 95.00 mg/dL (28.00-217.00); Microalbumin,Random Urine < 12.0 mg/L (<20 mg/L)
[2025-07-02 18:14] LABS: Hematocrit 32.1 % (37-47); Hemoglobin 8.8 g/dL (12.0-15.0); Immature Granulocytes Count 0.040 X10^3/uL (0.0-0.0); Mean Corp Hgb Conc 27.4 g/dL (32-36); Mean Corpuscular Volume 71.5 fL (81-99); Mean Platelet Vol. 9.3 fl (6.2-12.0); NRBC Flagged by Analyzer 0 % (0-5); Platelet Count 487 K/mm3 (150-450); RBC Distribution Width CV 19.0 % (11.6-14.6); RBC Distribution Width SD 48.5 fl (35.1-43.9); Red Blood Count 4.49 M/mm3 (4.2-5.4); White Blood Count 11.3 K/mm3 (4.4-11.0)
[2025-07-02 18:17] LABS: Color, Urine Yellow (Yellow); Glucose, Dipstick Normal (Normal); Ketone-Dipstick Negative (Negative); Leukocyte Esterase-Dipstick 25 /ul (Negative); Nitrite-Dipstick Negative (Negative); Occult Blood-Urine 10 /ul (Negative); Protein-Dipstick 15 mg/dl (Negative); Specific Gravity, Urine 1.010 (1.002-1.030); Urine Bilirubin Dipstick Negative (Negative)
[2025-07-02 18:21] LABS: AST(SGOT) 18 U/L (<=31); Alanine Aminotransfer ALT/SGPT 11 U/L (<=34); Albumin, Serum 3.9 g/dL (3.4-4.8); Alkaline Phosphatase 89 U/L (35-104); Anion Gap 11 (5-15); BUN 10 mg/dL (4-19); BUN/Creat Ratio 13.2 RATIO (10-20); Calcium,Total 9.2 mg/dL (7.6-11.0); Carbon Dioxide 25.2 mmol/L (21.0-32.0); Chloride 101 mmol/L (98-108); Cholesterol 145 mg/dL (<=200); Globulin 3.6 g/dL (2.2-4.2); Glucose 96 mg/dL (70-99); Low Density Lipoprotein Calc. 67 mg/dL; Potassium 4.7 mmol/L (3.3-5.1); Triglycerides 105 mg/dL; Very Low Density Lipoprotein 21 mg/dL (5-40); cholesterol:hdl ratio screen 2.55
[2025-07-02 18:25] LABS: Vitamin D,25 Hydroxy 51.3 ng/mL (30-100)
== END | disposition home or self-care (01) ==
LOC: MTLAB 16:40
PROVIDERS: PCP Internal Medicine; Referring Provider Internal Medicine; Visit Provider Internal Medicine
DX: I10 Essential (primary) hypertension (principal); E03.9 Hypothyroidism, unspecified; E78.5 Hyperlipidemia, unspecified; E55.9 Vitamin D deficiency, unspecified
CPT/HCPCS: 36415; 80053; 80061; 81002; 82043; 82306; 82570; 84443; 85025

== ENCOUNTER → 2025-07-30 | Outpatient (CLI) | payer MEDICARE, SELFPAY ==
[2025-07-30 14:56] LABS: Immature Reticulocyte Fraction 27.50 % (3.00-15.90); Platelet Count 419 K/mm3 (150-450); Reticulocyte Count 1.77 % (0.5-1.5)
[2025-07-30 15:04] LABS: Fibrinogen 553 mg/dl (203-444)
[2025-07-30 16:09] LABS: FOLATES,SERUM (FOLIC ACID) 8.31 ng/mL (4.60-34.80)
[2025-07-30 16:16] LABS: Ferritin 9 ng/mL (22-378); Iron 22 ug/dL (50-170); Iron Binding Capacity,Total 283 ug/dL (250-450); Iron Binding Capacity,Unsat 261 ug/dL (228-428); LDH 153 U/L (84-246); Vitamin B12 442 pg/mL (180-914)
== END | disposition home or self-care (01) ==
LOC: LAB 14:22
PROVIDERS: PCP Internal Medicine; Referring Provider Internal Medicine; Visit Provider Internal Medicine
DX: D64.9 Anemia, unspecified (principal)
CPT/HCPCS: 36415; 82607; 82728; 82746; 83540; 83550; 83615; 83921; 85045; 85384; 86850; 86880

== ENCOUNTER → 2025-09-05 | Outpatient (CLI) | payer MEDICARE, SELFPAY ==
[2025-09-05 15:14] LABS: Ferritin 96 ng/mL (22-378); Iron 53 ug/dL (50-170); Iron Binding Capacity,Total 285 ug/dL (250-450); Iron Binding Capacity,Unsat 232 ug/dL (228-428)
== END | disposition home or self-care (01) ==
LOC: LAB 13:54
PROVIDERS: PCP Internal Medicine; Referring Provider Internal Medicine; Visit Provider Internal Medicine
DX: D64.9 Anemia, unspecified (principal)
CPT/HCPCS: 36415; 82728; 83540; 83550